=== PATIENT | female | born 1990 | race African-American/Black ===

== ENCOUNTER 2021-04-11 11:05 | Emergency (ER) | payer OTHER, SELFPAY ==
--- NOTE | 2021-04-11 11:11 | ED.DENTAL ---
HPI - Dental/Oral General Chief complaint: Dental/Oral Stated complaint: Toothache Time Seen by Provider: 04/11/21 11:13 Source: patient and RN notes reviewed Mode of arrival: ambulatory Limitations: no limitations History of Present Illness HPI Narrative: 30-year-old female presents to the [facility] with complaints of dental pain. Patient states she has had increased pain since , 3 days. States that she has been trying to get a dental appointment pre-Covid 2018 early 2019. States that anytime she called her dentist they reschedule her. MD Complaint: tooth pain Related Data Allergies Allergy/AdvReac Type Severity Reaction Status Date / Time No Known Allergies Allergy Verified 09/05/17 01:05 Review of Systems Review of Systems: All systems reviewed & are unremarkable except as noted in HPI and below Constitutional: Constitutional: Reports no additional constitutional complaints, Denies chills and Denies fever(s) Eyes: Eyes: Reports no additional eye complaints ENT: Reports as per HPI Comments: right upper and lower dental pain Cardiovascular: Cardiovascular: Reports no additional cardiovascular complaints and Denies chest pain Respiratory: Respiratory: Reports no additional respiratory complaints, Denies cough and Denies dyspnea Musculoskeletal: Musculoskeletal: Reports no additional musculoskeletal complaints Integumentary/Breasts: Skin/Breast: Reports system reviewed and no additional complaints, except as docu Neurologic: Reports system reviewed and no additional complaints, except as documented Psychiatric: Psychiatric: Reports no additional psychiatric complaints Allergic/Immunologic: Allergic/Immunologic: Reports no additional allergic/immunologic complaints [facility] Surgical History Surgical History (Updated 04/11/21 @ 14:04 by Dayana Baptiste) History of cholecystectomy 2018 Exam Const: General: no acute distress Nutritional Appearance: well nourished Orientation/consciousness: patient oriented x3 HENMT: Head: normal to inspection Teeth and gingiva: gingiva abnormal and poor dentition Teeth image: 1. Fractured tooth 2. Gingiva red, swollen surrounding the tooth. 3. Caries noted, red with inflammation around tooth 31/32 Throat: posterior oropharynx normal Eyes: Conjunctivae: conjunctivae normal Pupils: Equal, round and reactive pupils present Neck: Neck: normal visual inspection, no lymphadenopathy and no meningeal signs Chest: Chest palpation & inspection: normal inspection of the chest Resp: Effort & Inspection: normal respiratory effort and no use of accessory muscles Auscultation: clear to auscultation bilaterally, no crackles, no rales, no rhonchi and no wheezes Cardio: Rate: regular rate Rhythm: regular rhythm Back/Spine/Pelvis: Back: no CVA tenderness Skin: General skin exam: normal color Rashes: no rashes Wounds: no wounds Neuro: General: patient oriented x3, moves all extremities, no meningeal signs and no focal motor deficits Speech: normal speech Gait exam (Neuro): Normal gait present Extrem: General: normal to inspection Psych: Appearance: grossly normal and well kempt Mental Status: mental status grossly normal Affect: normal affect Attitude: cooperative Thought content: Yes Normal thought content present Course Course Emergency Course: Discharge instructions reviewed with patient, as well as provided in writing per nursing staff. The instructions also include specific and strict return/GO TO THE ER as well as f/u information. All questions have been answered, and the patient deny any further questions with discharge and discharge plan. List of dental providers given to patient. Discussed the importance of following up with a dental provider Vital Signs Vital signs: Vital Signs Temperature 98.1 F 04/11/21 11:12 Pulse Rate 74 04/11/21 11:12 Respiratory Rate 16 04/11/21 11:12 Blood Pressure 124/80 04/11/21 11:12 Pulse Oxim
[2021-04-11 11:12] VITALS: BP 124/80; PULSE 74; RESP 16; TEMP 36.7; O2SAT 97
== END 2021-04-11 11:25 | disposition home or self-care (01) ==
PROVIDERS: Emergency Provider Nurse Practitioner; PCP Nurse Practitioner Family
DX: K02.9 Dental caries, unspecified (principal); K04.7 Periapical abscess without sinus
CPT/HCPCS: 99213; G0463

== ENCOUNTER 2021-06-23 12:33 | Outpatient (CLI) | payer OTHER, SELFPAY ==
--- NOTE | ~2021-06-23 | US_ITS ---
EXAMINATION:US venous doppler LE LT INDICATION:Left lower extremity swelling TECHNIQUE: Multiple grayscale, color flow and Doppler images of the left lower extremity deep venous systems were obtained and reviewed. COMPARISON:No prior studies for comparison. FINDINGS: The common femoral, superficial femoral and popliteal veins demonstrate normal respiratory variation, augmentation and compressibility. Color flow is also seen within the posterior tibial, pe roneal, greater saphenous and profunda veins. IMPRESSION: 1: No lower extremity deep venous thrombosis. Reviewed, dictated and finalized at location A.
--- NOTE | ~2021-06-23 | XR_ITS ---
XR knee LT 3V 06/23/2021 13:34 INDICATION: Left knee pain PROCEDURE: 3 views left knee COMPARISON: No prior studies for comparison. FINDINGS: Fracture, dislocation or subluxation is not identified. No significant joint effusion. The soft tissues appear within normal limits. No foreign bodies are identified. IMPRESSION: 1: NO ACUTE BONE OR JOINT ABNORMALITY IDENTIFIED. Reviewed, dictated and finalized at location A.
== END 2021-06-23 12:34 | disposition home or self-care (01) ==
PROVIDERS: PCP Nurse Practitioner Family; Visit Provider Nurse Practitioner Family
DX: R22.42 Localized swelling, mass and lump, left lower limb (principal); M25.562 Pain in left knee
CPT/HCPCS: 73562; 93971

== ENCOUNTER 2021-11-23 09:49 | Outpatient (CLI) | payer OTHER, SELFPAY ==
--- NOTE | ~2021-11-23 | XR_ITS ---
EXAMINATION: XR lumbar spine 2-3V DATE: 11/23/2021 10:18 INDICATION: Low back pain TECHNIQUE: Anteroposterior and lateral views of the lumbar spine, and cone-down lateral view of the l umbosacral junction were obtained. COMPARISON: 08/27/2017 FINDINGS: There is no fracture, dislocation, or subluxation. The vertebral body heights and intervert ebral disc spaces are normal. Surgical clips in the right upper quadrant are likely from prior cholec ystectomy. IMPRESSION: 1. No acute osseous abnormality. Reviewed, dictated and finalized at location F. EMIC ASSISTANT
== END 2021-11-23 09:50 | disposition home or self-care (01) ==
PROVIDERS: PCP Nurse Practitioner Family; Visit Provider Nurse Practitioner Family
DX: M54.50 Low back pain, unspecified (principal)
CPT/HCPCS: 72100

== ENCOUNTER 2022-03-22 13:48 | Outpatient (CLI) | payer OTHER, SELFPAY ==
--- NOTE | ~2022-03-22 | US_ITS ---
EXAMINATION: US pelvic complete w TV DATE: 03/22/2022 15:10 INDICATION: Dysmenorrhea TECHNIQUE: Multiple transabdominal and endovaginal sonographic images of the pelvis were obtained. COMPARISON: None. FINDINGS: The uterus measures 8.5 x 4.5 x 5.7 cm. The myometrium demonstrates a somewhat heterogeneou s appearance. The endometrial complex measures 6 mm. The right ovary measures 2.5 x 1.6 x 1.7 cm. The left ovary measures 2.7 x 2.1 x 1.7 cm. There is normal vascular flow in the ovaries. There is no fr ee fluid in the pelvis. IMPRESSION: 1. Heterogeneous appearance of the myometrium which is nonspecific but can be seen in the setting of adenomyosis. Reviewed, dictated and finalized at location A. IMPRESSION: 1. Heterogeneous appearance of the myometrium which is nonspecific but can be s een in the setting of adenomyosis.
== END 2022-03-22 13:49 | disposition home or self-care (01) ==
LOC: ANHIMG 13:52
PROVIDERS: PCP Nurse Practitioner Family; Visit Provider Nurse Practitioner Family
DX: N94.6 Dysmenorrhea, unspecified (principal)
CPT/HCPCS: 76830; 76856

== ENCOUNTER 2025-07-02 15:46 | Emergency (ER) | payer SELFPAY ==
--- NOTE | ~2025-07-02 | XR_ITS ---
EXAMINATION: XR foot RT min 3V DATE: 07/02/2025 16:14 INDICATION: Injury, pain, fell last night at work TECHNIQUE: 4 images of the right foot were obtained. COMPARISON: None. FINDINGS: Hallux valgus deformity. Moderate joint space narrowing in the first metatarsophalangeal joint with adjacent soft tissue swelling. Bone mineralization is within normal limits. Toes are curled which limits evaluation. Soft tissue swelling about the right foot. IMPRESSION: 1. No fracture identified. 2. Hallux valgus deformity. 3. Moderate joint space narrowing in the first metatarsophalangeal joint with adjacent soft tissue swelling. If symptoms persist or worsen, consider a short-term follow-up study or additional imaging for further assessment. Reviewed, dictated and finalized at location Q. IMPRESSION: 1. No fracture identified. 2. Hallux valgus deformity. 3. Moderate joint space narrowing in the first metatarsophalangeal joint with a djacent soft tissue swelling. If symptoms persist or worsen, consider a short-term follow-up study or additio nal imaging for further assessment.
--- NOTE | 2025-07-02 15:50 | ED.GENADULT ---
HPI - General Adult General Chief complaint: Extremity Injury, Lower Stated complaint: R foot pain Time Seen by Provider: 07/02/25 15:50 Source: patient Mode of arrival: ambulatory Limitations: no limitations History of Present Illness HPI narrative: Pt is a 34 y/o female presenting with c/o R. foot pain since last night. Reports a hyperflexion of the R. foot. Tx initiated includes ibuprofen. NO paresthesias. Aggravating factors include flexion. No hx of previous surgery/fracture to the R. foot. No additional complaints. Related Data Allergies Allergy/AdvReac Type Severity Reaction Status Date / Time No Known Allergies Allergy Verified 09/05/17 01:05 Review of Systems Review of Systems: CONSTITUTIONAL: Denies body aches, fever, chills, or sweats. EYES: Denies visual changes, redness, or discharge. ENT: Denies rhinorrhea, congestion, sore throat, or otalgia. CARDIOVASCULAR: Denies chest pain, palpitations, or edema. RESPIRATORY: Denies cough or dyspnea. GASTROINTESTINAL: Denies abdominal pain, nausea, vomiting, or diarrhea. GENITOURINARY: Denies dysuria or hematuria. SKIN: Denies rash, itching, or wounds. MUSCULOSKELETAL:reports right foot pain Denies back pain NEUROLOGIC: Denies headache, numbness, tingling, or weakness. PSYCH: Denies depression or anxiety. All systems reviewed & are unremarkable except as noted in HPI and below PMF[facility] Surgical History Surgical History (Updated 04/11/21 @ 14:04 by Dayana Baptiste, CHRIS) History of cholecystectomy 2018 Exam Narrative: GENERAL: Well-appearing, well-nourished, and in no acute distress. HEAD: Normocephalic, atraumatic. EYES: EOMI. No redness or drainage. Conjunctivae normal. ENT: Mucous membranes pink and moist. NECK: Normal AROM. Supple. CHEST: No respiratory distress. HEART: Regular rate Normal peripheral pulses. EXTREMITIES: Normal range of motion. No edema. Faint ecchymosis and mild TTP noted to dorsal aspect of the R. foot, immediately superior to the 2nd and 3rd proximal phalanges. +FROM +DNVI to the RLE. SKIN: Warm, dry, no rash. Capillary refill normal. Normal skin turgor. NEURO: No focal deficits. Alert and oriented x3. Gait steady. PSYCH: Normal affect. No signs of depression or anxiety. Course Course Level of Care: Express Care Visit Vital Signs Vital signs: Vital Signs Temperature 96.8 F L 07/02/25 15:58 Pulse Rate 92 07/02/25 15:58 Respiratory Rate 16 07/02/25 15:58 Blood Pressure 135/93 H 07/02/25 15:58 Pulse Oximetry 99 07/02/25 15:58 Temperature 96.8 F L 07/02/25 15:58 Pulse Rate 92 07/02/25 15:58 Respiratory Rate 16 07/02/25 15:58 Blood Pressure 135/93 H 07/02/25 15:58 Pulse Oximetry 99 07/02/25 15:58 Medical Decision Making MDM Narrative Medical decision making narrative: Discussed elevated blood pressure readings with patient and advised daily BP monitoring and f/u with PCP if persisting. Vital Signs Vital Signs: Vital Signs Temperature 96.8 F L 07/02/25 15:58 Pulse Rate 92 07/02/25 15:58 Respiratory Rate 16 07/02/25 15:58 Blood Pressure 135/93 H 07/02/25 15:58 Pulse Oximetry 99 07/02/25 15:58 Temperature 96.8 F L 07/02/25 15:58 Pulse Rate 92 07/02/25 15:58 Respiratory Rate 16 07/02/25 15:58 Blood Pressure 135/93 H 07/02/25 15:58 Pulse Oximetry 99 07/02/25 15:58 Imaging Data Attestation: I personally reviewed and interpreted this imaging study as follows: My impression: [facility] Radiologist's impression: [facility] Discharge Plan Discharge Clinical Impression: Sprain of foot, right, Asymptomatic bunion of right foot, Elevated blood pressure reading in office without diagnosis of hypertension Patient Disposition: Home Condition: Stable Instructions: Foot Sprain (ED) Additional Instructions: Go straight to ER should your symptoms become worse or should any new symptoms develop Patient Language: Romansh Follow-up/Referrals: UNKNOWN,DOCTOR [Primary Care Provider] - 07/03/25 Time of Disposition: 16:33
[2025-07-02 15:58] VITALS: BP 135/93; PULSE 92; RESP 16; TEMP 36; O2SAT 99
== END 2025-07-02 16:38 | disposition home or self-care (01) ==
PROVIDERS: Emergency Provider Registered Nurse
DX: S93.601A Unspecified sprain of right foot, initial encounter (principal); X50.9XXA Other and unspecified overexertion or strenuous movements or postures, initial encounter; M21.611 Bunion of right foot; E03.0 Congenital hypothyroidism with diffuse goiter
CPT/HCPCS: 73630; 99213; G0463